=== PATIENT | female | born 1955 | race Caucasian/White ===

== ENCOUNTER 2021-06-06 15:55 | Outpatient (CLI) | payer BC | END 2021-06-06 15:56 | disposition home or self-care (01) | LOC: CSHRAD 15:55 | PROVIDERS: ATTEND Internal Medicine | DX: M25.552 Pain in left hip (principal); M25.551 Pain in right hip; M16.0 Bilateral primary osteoarthritis of hip | CPT/HCPCS: 73523 ==

== ENCOUNTER 2024-09-29 17:00 | Emergency (ER) | payer MEDICARE ==
[2024-09-29] MEDS ORDERED: Etomidate 40 MG (20 mL) VIAL ONE (17:28)
[2024-09-29 17:38] LABS: #Basophils 0.11 10x3/uL (0.0-0.2); #Eosinophils 0.21 10x3/uL (0.0-0.5); #Monocytes 0.68 10x3/uL (0.0-1.1); #Neutrophils 6.89 10x3/uL (1.5-8.4); %Basophils 1.1 % (0.0-2.0); %Eosinophils 2.1 % (0.0-6.0); %Lymphocytes 21.6 % (18.0-47.0); %Monocytes 6.7 % (0.0-10.0); %Neutrophils 67.7 % (40.0-75.0); Hematocrit 40.6 % (34.9-44.5); Hemoglobin 13.9 g/dL (12.0-15.5); Mean Corpuscular HGB CONC 34.2 g/dL (32.0-36.0); Mean Corpuscular Volume 93.3 fL (81.6-98.3); Mean Platelet Volume 8.5 fL (7.4-10.4); Platelet Count 395 10x3/uL (150-450); RBC Distribution Width 12.3 % (11.5-14.5); Red Blood Cell (RBC) Count 4.35 10x6/uL (3.90-5.03); White Blood Cell (WBC) Count 10.2 10x3/uL (3.5-10.5)
[2024-09-29 17:53] LABS: ALT (SGPT) 18 U/L (8-55); AST (SGOT) 16 U/L (5-34); Albumin 3.9 g/dL (3.4-4.8); Alkaline Phosphatase 73 U/L (40-110); Anion Gap 14 mmol/L (10-20); BUN (Urea Nitrogen) 14 mg/dL (9.8-20.1); Bilirubin, Total 0.3 mg/dL (0.2-1.2); Calc. Creatinine Clearance 0 mL/min (70-130); Calcium 9.5 mg/dL (7.8-10.44); Carbon Dioxide 28 mmol/L (23-31); Chloride 102 mmol/L (98-107); Estimated GFR 90; Globulin 3.1 g/dL (2.4-3.5); Glucose 159 mg/dL (80-115); Potassium 4.1 mmol/L (3.5-5.1); Sodium 140 mmol/L (136-145)
[2024-09-29 18:00] LABS: Troponin I Less than 0.010 ng/mL (< 0.028)
[2024-09-29] MEDS ORDERED: fentaNYL 50 mcg/mL 1 mL Vial ONE (18:47)
== END 2024-09-29 20:05 | disposition home or self-care (01) ==
LOC: CSHERS 17:00
DX: I48.91 Unspecified atrial fibrillation (principal); R53.81 Other malaise
CPT/HCPCS: 71045; 80053; 84484; 85025; 93005; 93922; 94760; 99152; 99285; J3010; 93010

== ENCOUNTER 2024-10-09 13:34 | Outpatient (CLI) | payer MEDICARE | END 2024-10-09 13:35 | disposition home or self-care (01) | LOC: CSHMAMMO 13:34 | PROVIDERS: ATTEND Internal Medicine Rheumatology | DX: M81.0 Age-related osteoporosis without current pathological fracture (principal); M85.851 Other specified disorders of bone density and structure, right thigh; M85.852 Other specified disorders of bone density and structure, left thigh | CPT/HCPCS: 77080 ==